=== PATIENT | female | born 1935 | race Caucasian/White ===

== ENCOUNTER 2025-03-03 06:15 | Day surgery (SDC) | payer OTHER, SELFPAY ==
[2025-03-03 06:30] VITALS: BP 154/81
[2025-03-03 06:37] VITALS: BP 154/81
[2025-03-03 07:06] VITALS: BMI 21.7
[2025-03-03 07:17] LABS: Hematocrit 40.3 % (37.0-47.0); Hemoglobin 13.6 g/dL (12.0-16.0); Mean Corp Hgb Conc. 33.7 g/dL (33.0-37.0); Mean Corpuscular Volume 85.9 fL (81.0-99.0); Mean Platelet Volume 10.9 fL (7.4-10.4); Platelet Count 153 10^3/uL (130-400); Red Blood Cell Count 4.69 10^6/uL (4.20-5.40); Red Cell Dist. Width 13.7 % (11.5-14.5); White Blood Cell Count 5.9 10^3/uL (4.8-10.8)
[2025-03-03 07:23] LABS: ALT (SGPT) 13 U/L (0-35); AST (SGOT) 21 U/L (14-36); Albumin 3.8 g/dl (3.5-5.0); Alkaline Phosphatase 104 U/L (38-126); Blood Urea Nitrogen 29 mg/dl (7-17); Calcium 10.1 mg/dl (8.4-10.2); Carbon Dioxide 27 mmol/L (22-30); Chloride 107 mmol/L (98-107); Estimated Creatinine Clearance 29 ml/min; Glucose 85 mg/dl (70-99); Potassium 3.7 mmol/L (3.5-5.1); Sodium 140 mmol/L (135-145); Total Bilirubin 0.5 mg/dl (0.2-1.3); Total Protein 6.5 g/dl (6.3-8.2); eGFR 54.19
--- NOTE | 2025-03-03 07:57 | ITS.CL.PACE ---
Urology Surgeon - Pacemaker Implant
Pacemaker Implant
Procedure Report:
Date of Procedure: March 03, 2025
Patient : [id number]
Procedure: Pacemaker Implantation.
Indication: Generator WINSTON
Implants:
Pulse Generator: Hines; Model# PM 2272; SN: [id number]
RA Lead: Hines; Model# 2088 TC; SN: [id number] implanted 2013
RV Lead: Hines; Model# 2088 TC; SN: [id number] implanted 2013
Explants:
Pulse generator [id number] Serial [id number]
Technique: A time out was performed. The procedure site was identified. The patient was anesthetized by the anesthesia service. Preoperative sedation was administered. The patient was prepped and draped in the usual fashion. Local anesthetic was
applied to the left prepectoral subcutaneous tissue. A 3 inch incision was made 2.5 inches below the left clavicle. A subcutaneous pocket was created with blunt and sharp dissection and hemostasis controlled with Bovie cautery. The left axillary
vein was accessed within the pocket without difficulty. Hemostasis was excellent. The leads were introduced with 7 Fr hemostatic peel away introducer sheaths. The ventricular lead was placed at the right ventricular apex. The atrial lead was placed
in the right atrial appendage. 10 volt pacing did not capture the diaphragm. The leads were secured to the pectoralis muscle and fascia. The leads were appropriately attached to the device. The pocket was irrigated with antibiotic solution. The
device and leads were placed in the pocket. The incision was closed in three layers with absorbable suture. The estimated blood loss was minimal. There were no complications.��
Lead Analysis:
RA lead: P: 3.3 mV; Threshold: 0.75 V @ 0.5��ms; Impedance: 410 ohms.
RV lead: R: 5.5 mV; Threshold: 1.5 V @ 0.5��ms; Impedance: 460 ohms.
Final Programming: DDDR 60-120
�
Conclusion: Uncomplicated [employer]tr[employer] pacemaker implant.
Recommendation: Routine post pacemaker care.
]
[2025-03-03 08:00] VITALS: BP 120/69
[2025-03-03 08:16] VITALS: BP 127/60
[2025-03-03 08:31] VITALS: BP 141/74
[2025-03-03 08:46] VITALS: BP 138/69
== END 2025-03-03 09:00 | disposition home or self-care (01) ==
LOC: CATH 06:15
PROVIDERS: ATTENDING PHYSICIAN Internal Medicine Cardiovascular Disease; FAMILY PHYSICIAN Family Medicine; OTHER PHYSICIAN Internal Medicine Cardiovascular Disease
DX: I49.5 Sick sinus syndrome (principal); Z95.0 Presence of cardiac pacemaker; I08.2 Rheumatic disorders of both aortic and tricuspid valves; I10 Essential (primary) hypertension; G30.1 Alzheimer's disease with late onset; I27.20 Pulmonary hypertension, unspecified; Z82.49 Family history of ischemic heart disease and other diseases of the circulatory system; Z79.82 Long term (current) use of aspirin
CPT/HCPCS: 33228; 80053; 85027; C1785